=== PATIENT | female | born 1935 | race Caucasian/White ===

== ENCOUNTER 2024-01-05 09:09 | Emergency (ER) | payer OTHER ==
[~2024-01-05] VITALS: Ht 152.4 cm; Wt 61.2 kg
[2024-01-05 09:47] VITALS: BP 137/90
== END 2024-01-05 10:55 | disposition home or self-care (01) ==
LOC: ER 09:09
DX: R51.9 Headache, unspecified (principal); Z87.820 Personal history of traumatic brain injury
CPT/HCPCS: 70450; 99284-25

== ENCOUNTER → 2024-05-24 | Outpatient (CLI) | payer OTHER ==
[2024-05-24 09:30] LABS: Source, Urine Voided
[2024-05-24 09:38] LABS: Appearance, Urine Clear (Clear); Bilirubin, Urine Neg (Neg); Blood, Urine 1+ (Neg); Color, Urine Yellow (P-Yellow); Glucose Qualitative, Urine Neg (Normal); Ketones, Urine Neg (Neg); Leukocyte Esterase, Urine Neg (Neg); Nitrite, Urine Neg (Neg); Protein, Urine Neg (Neg); Urobilinogen, Urine NORM (Normal)
[2024-05-24 09:43] LABS: Bacteria Not Seen /hpf; Squamous Epithelial Cells Few /hpf (Few); White Blood Cells, Urine 0-2 /hpf (0-5)
== END ==
LOC: LAB SHORT 08:53 → LAB 08:53
DX: N30.00 Acute cystitis without hematuria (principal)
CPT/HCPCS: 81001